=== PATIENT | male | born 1965 | race Caucasian/White ===

== ENCOUNTER 2018-01-09 10:35 | Outpatient (CLI) | payer OTHER ==
--- NOTE | 2018-01-09 12:56 | RAD ---
LUMBAR SPINE THREE VIEWS: History: degenerative disc disease. Comparison: none. FINDINGS: Five non rib bearing lumbar type vertebrae. Mild degenerative changes of the SI joints. There is degenerative narrowing, mild, throughout the lumbar spine. No listhesis. No fracture. Anterior osteophytes are present throughout the lumbar spine. Moderate facet arthropathy at L4-5 and L5-S1. IMPRESSION: 1. Moderate spondylosis of the lumbar spine. No listhesis. 2. No acute fracture or malalignment. POS: DRARION
== END 2018-01-09 10:36 | disposition home or self-care (01) ==
LOC: NAV RAD 10:35
PROVIDERS: ATTEND Family Medicine
DX: M51.36 Other intervertebral disc degeneration, lumbar region (principal); M47.896 Other spondylosis, lumbar region; Z98.890 Other specified postprocedural states
CPT/HCPCS: 72100